=== PATIENT | female | born 1940 | race Caucasian/White ===

== ENCOUNTER 2017-05-22 14:39 | Emergency (ER) | payer MEDICARE, OTHER ==
[2017-05-22 16:09] VITALS: RESP 18
[2017-05-22 17:47] LABS: SQUAMOUS EPITHIAL 4 /hpf (0-5); URINE BACTERIA FEW (<OCC); URINE BILIRUBIN NEGATIVE (NEGATIVE); URINE BLOOD NEGATIVE (NEGATIVE); URINE CLARITY Hazy (Clear); URINE COLOR Yellow (YELLOW); URINE GLUCOSE (UA) NORMAL (Normal); URINE LEUKOCYTE ESTERASE NEG Leu/uL (Negative); URINE NITRATE NEGATIVE (NEGATIVE); URINE PROTEIN 1+ mg/dL (NEGATIVE)
[2017-05-22] MEDS ORDERED: Oxycodone/Acetaminophen 5/325 mg Tab PO STA (18:00)
[2017-05-22] MEDS ORDERED: Lidocaine 5% Patch TD STA (18:00)
--- NOTE | 2017-05-22 18:02 | RAD ---
PROCEDURE: Radiographs of the Lumbar Spine. HISTORY: severe low back pain COMPARISON: No prior. FINDINGS: BONES: . No listhesis. No fracture. DISC SPACES: Scoliosis, secondary degenerative change at multiple levels. OTHER FINDINGS: Calcified nonaneurysmal abdominal aorta. IMPRESSION: No significant or acute findings to account for/ related to the clinical presentation.
[2017-05-22] MEDS ORDERED: Lidocaine 5% Patch TD ONE (18:06)
[2017-05-22] MEDS ORDERED: Oxycodone/Acetaminophen 5/325 mg Tab ONE (18:07)
--- NOTE | 2017-05-22 18:38 | C.PDOC ---
History Of Present Illness Contrary to triage, 76 y/o female presents to the ER complaining of low back pain which has been present for the past 3 to 4 days. Patient states that she went to Dr.Jay Russell. He gave her an unknown injection and a prescription for Naproxen. However, patient did not feel better so she decided to come to the ER. Of note, patient showed a prescription from last year when she had shoulder pain in order to show the nurse the name of her doctor. Time Seen by Provider: 05/22/17 16:45 Chief Complaint (Nursing): Upper Extremity Problem/Injury History Per: Patient History/Exam Limitations: no limitations Onset/Duration Of Symptoms: Days Current Symptoms Are (Timing): Still Present Severity: Moderate Past Medical History Reviewed: Historical Data, Nursing Documentation, Vital Signs Vital Signs: Last Vital Signs Temp 97.7 F 05/22/17 18:40 Pulse 56 L 05/22/17 18:40 Resp 18 05/22/17 18:40 BP 166/70 H 05/22/17 18:40 Pulse Ox 96 05/22/17 21:20 - Medical History PMH: HTN Surgical History: Appendectomy Family History: States: No Known Family Hx - Social History Hx Alcohol Use: No Hx Substance Use: No - Immunization History Hx Tetanus Toxoid Vaccination: No Hx Influenza Vaccination: No Hx Pneumococcal Vaccination: No Review Of Systems Except As Marked, All Systems Reviewed And Found Negative. Musculoskeletal: Positive for: Back Pain (low back pain) Neurological: Negative for: Weakness, Numbness Physical Exam - Physical Exam Appears: Non-toxic, No Acute Distress Skin: Normal Color, Warm Head: Atraumatic, Normacephalic Eye(s): bilateral: Normal Inspection Nose: Normal Oral Mucosa: Moist Neck: Supple Chest: Symmetrical Cardiovascular: Rhythm Regular Respiratory: Normal Breath Sounds, No Accessory Muscle Use, No Rales, No Rhonchi , No Wheezing Back: Other (tenderness to lower back) Extremity: Normal ROM Neurological/Psych: Oriented x3, Normal Speech, Normal Motor, Normal Sensation ED Course And Treatment O2 Sat by Pulse Oximetry: 96 (RA) Pulse Ox Interpretation: Normal Progress Note: Patient given Lidoderm patch and Percocet. Patient feels better and was discharged. Disposition - Disposition Referrals: Della Russell MD [Staff Provider] - Disposition: HOME/ ROUTINE Disposition Time: 18:36 Condition: STABLE Additional Instructions: Follow up with PMD within 1-2 days. Return to ED if feel worse. Prescriptions: Lidocaine 5% [Lidoderm] 1 patch TP DAILY #30 patch oxyCODONE/Acetaminophen [Percocet 5/325 mg Tab] 1 tab PO QID PRN #20 tab PRN Reason: Pain diaZEpam [Valium] 2 mg PO TID #15 tab Instructions: Acute Low Back Pain (ED) Forms: [employer] (South Korean) - Clinical Impression Clinical Impression: Low back pain - PA / [employer] / Resident Statement MD/DO has reviewed & agrees with the documentation as recorded. - Scribe Statement The provider has reviewed the documentation as recorded by the Jorden Telles Provider Attestation All medical record entries made by the Rachelleibkrystina were at my direction and personally dictated by me. I have reviewed the chart and agree that the record accurately reflects my personal performance of the history, physical exam, medical decision making, and the department course for this patient. I have also personally directed, reviewed, and agree with the discharge instructions and disposition.
[2017-05-22 19:03] VITALS: BP 166/70; PULSE 56; TEMP 97.7
[2017-05-22 21:18] VITALS: O2SAT 96
== END 2017-05-22 18:40 | disposition home or self-care (01) ==
LOC: C.ER 14:39
DX: M54.5 Low back pain (principal)

== ENCOUNTER 2017-06-05 15:41 | Emergency (ER) | payer MEDICARE, OTHER ==
[2017-06-05 16:04] VITALS: BP 149/88; PULSE 102; RESP 20; TEMP 97.9; O2SAT 97
[2017-06-05] MEDS ORDERED: Tmp-Smz 800 mg-160 mg DS Tab PO STA (16:38)
[2017-06-05] MEDS ORDERED: Amoxicillin-Clav 875-125 mg Tab PO STA (16:40)
--- NOTE | 2017-06-05 16:45 | C.PDOC ---
History Of Present Illness 76 year old female presents to the ED for evaluation of right ear pain and redness which began 4 days ago. Patient was seen by Dr. Erasto Russell and given Rx for Levaquin. Patient has been taking the medicine without relief and states the pain has been radiating to her face. She denies fever, chills, ear discharge , or trauma. Time Seen by Provider: 06/05/17 16:31 Chief Complaint (Nursing): ENT Problem History Per: Patient History/Exam Limitations: None Onset/Duration Of Symptoms: Days (4) Current Symptoms Are (Timing): Still Present Quality (Ear): Pain W/Touch, Redness. denies: Discharge Past Medical History Reviewed: Historical Data, Nursing Documentation, Vital Signs Vital Signs: Last Vital Signs Temp 97.9 F 06/05/17 15:59 Pulse 102 H 06/05/17 15:59 Resp 20 06/05/17 15:59 BP 149/88 06/05/17 15:59 Pulse Ox 97 06/05/17 16:46 - Medical History PMH: HTN Surgical History: Appendectomy Family History: States: Unknown Family Hx - Social History Hx Alcohol Use: No Hx Substance Use: No - Immunization History Hx Tetanus Toxoid Vaccination: No Hx Influenza Vaccination: No Hx Pneumococcal Vaccination: No Review Of Systems Constitutional: Negative for: Fever, Chills ENT: Positive for: Ear Pain (right). Negative for: Ear Discharge Physical Exam - Physical Exam Appears: Non-toxic, No Acute Distress Skin: Normal Color, Warm, Dry Head: Atraumatic, Normacephalic, No Tenderness (mastoid ) Eye(s): bilateral: Normal Inspection Ear(s): Left: Other (erythema and tenderness to helix. no abscess collection. no sloughing of skin ), Right: Normal Oral Mucosa: Moist Neck: Supple Chest: Symmetrical, No Deformity, No Tenderness Cardiovascular: Rhythm Regular, No Murmur Respiratory: Normal Breath Sounds, No Rales, No Rhonchi, No Wheezing Extremity: Normal ROM, Capillary Refill (less than 2 seconds ) Neurological/Psych: Oriented x3, Normal Speech, Normal Cognition Gait: Steady ED Course And Treatment O2 Sat by Pulse Oximetry: 97 (on RA) Pulse Ox Interpretation: Normal Medical Decision Making Medical Decision Making: Assessment: cellulitis of ear Progress: Augmentin PO, Bactrim PO, and Motrin PO administered. Will discharge patient on Levaquin and prescribe Augmentin and Bactrim. Advised patient to f/u with Dr. Byers for further evaluation. Disposition Counseled Patient/Family Regarding: Studies Performed, Diagnosis, Need For Followup, Rx Given - Disposition Referrals: Rafat Byers MD [Staff Provider] - [facility] [Outside] Disposition: HOME/ ROUTINE Disposition Time: 16:42 Condition: STABLE Additional Instructions: follow up with Dr. Byers in 2 days. stop levofloxacin call to make an appointment take medications as prescribed return to ER if symptoms worsens or progress Prescriptions: Acetaminophen/Codeine [Tylenol/Codeine 300 MG/30 MG] 1 tab PO Q6H PRN #12 tab PRN Reason: Pain, Severe (8-10) Amoxicillin/Clavulanate [Augmentin 875 MG-125 MG] 1 tab PO BID #20 tab Naproxen [Naprosyn] 500 mg PO BID PRN #16 tab PRN Reason: Pain, Moderate (4-7) Sulfamethoxazole/Trimethoprim [Bactrim DS 800 mg-160 mg] 1 tab PO BID #14 tab Instructions: Cellulitis (Skin Infection), Adult (DC) Forms: [employer] (Citizen Of [place]), Gen Discharge Inst Citizen Of [place] Print Language: JAPANESE - Clinical Impression Clinical Impression: Cellulitis - Scribe Statement The provider has reviewed the documentation as recorded by the Scribe (Marci Russell) Provider Attestation: All medical record entries made by the Scribe were at my direction and personally dictated by me. I have reviewed the chart and agree that the record accurately reflects my personal performance of the history, physical exam, medical decision making, and the department course for this patient. I have also personally directed, reviewed, and agree with the discharge instructions and disposition.
[2017-06-05] MEDS ORDERED: Tmp-Smz 800 mg-160 mg DS Tab ONE (17:03)
[2017-06-05] MEDS ORDERED: Amoxicillin-Clav 875-125 mg Tab PO ONE (17:03)
== END 2017-06-05 17:10 | disposition home or self-care (01) ==
LOC: C.ER 15:41
DX: H60.12 Cellulitis of left external ear (principal)

== ENCOUNTER 2017-06-06 19:53 | Emergency (ER) | payer MEDICARE, OTHER ==
[2017-06-06] MEDS ORDERED: Sodium Chloride 0.9% 500 ML IV ONE ×2 (21:00→21:31)
[2017-06-06 21:20] LABS: BASO # 0.1 K/uL (0.0-0.2); BASO % 0.6 % (0.0-2.0); EOS % 0.3 % (0.0-4.0); LYMPH # 2.9 K/uL (1.0-4.3); LYMPH % 22.7 % (20.0-40.0); MEAN CORPUSCULAR HEMOGLOBIN 28.2 pg (27.0-31.0); MEAN CORPUSCULAR HGB CONC 33.2 g/dL (33.0-37.0); MEAN PLATELET VOLUME 7.6 fL (7.2-11.7); MONO # 0.6 K/uL (0.0-0.8); NEUT # 9.1 K/uL (1.8-7.0); NEUT % 71.4 % (50.0-75.0); NRBC % 0.1 % (0.0-2.0); RBC 4.96 Mil/uL (3.80-5.20); RED CELL DISTRIBUTION WIDTH 14.4 % (11.5-14.5); WHITE BLOOD COUNT 12.7 K/uL (4.8-10.8)
[2017-06-06] MEDS ORDERED: Sodium Chloride 0.9% 0 ML ONE (21:21)
[2017-06-06 21:43] LABS: ALB/GLOB RATIO 1.1 (1.0-2.1); CALCIUM 10.2 mg/dl (8.6-10.4)
--- NOTE | 2017-06-06 22:35 | CT ---
EXAM: CT Head Without Intravenous Contrast CLINICAL HISTORY: 76 years old, female; Signs and symptoms; Dizziness; Additional info: Dizziness, rt auricular cellulitis, post ear pain TECHNIQUE: Axial computed tomography images of the head/brain without intravenous contrast. All CT scans at this facility use one or more dose reduction techniques, viz.: automated exposure control; ma/kV adjustment per patient size (including targeted exams where dose is matched to indication; i.e. head); or iterative reconstruction technique. COMPARISON: No relevant prior studies available. FINDINGS: Brain: There is mild diffuse cerebral atrophy present, consistent with this patient's age. There is mild diffuse heterogeneity of the white matter attenuation, consistent with chronic white matter ischemic changes. No hemorrhage. Ventricles: The ventricular system demonstrates mild diffuse compensatory enlargement. Bones/joints: Unremarkable. No acute fracture. Soft tissues: There is no soft tissue collection or mass posterior to the ear. Sinuses: Unremarkable as visualized. No acute sinusitis. Mastoid air cells: Unremarkable as visualized. No mastoid effusion. IMPRESSION: No acute intracranial findings.
--- NOTE | 2017-06-06 23:28 | C.PDOC ---
History Of Present Illness 76 year old female presents to the ER with daughters for a complaint of vomiting and decreased appetite. As per daughters, patient was treated for an ear infection 2 weeks ago during which time she completed a course of Levaquin, however, the symptoms persisted with no improvement of infection. Patient was seen at [facility] and this hospital yesterday and offered new antibiotics; she now return due to dizziness and headache that began today. Patient states she feels better compared to how she felt initially, however, she is still having pain to the right ear and sore throat. Denies chest pain, SOB, or fever. Time Seen by Provider: 06/06/17 20:23 Chief Complaint (Nursing): GI Problem History Per: Patient History/Exam Limitations: no limitations Onset/Duration Of Symptoms: Days Current Symptoms Are (Timing): Still Present Recent travel outside of the [place]: No Past Medical History Reviewed: Historical Data, Nursing Documentation, Vital Signs Vital Signs: Last Vital Signs Temp 98 F 06/06/17 23:37 Pulse 88 06/06/17 23:37 Resp 18 06/06/17 23:37 BP 140/70 06/06/17 23:37 Pulse Ox 98 06/07/17 01:08 - Medical History PMH: HTN Surgical History: Appendectomy Family History: States: Unknown Family Hx - Social History Hx Alcohol Use: No Hx Substance Use: No - Immunization History Hx Tetanus Toxoid Vaccination: No Hx Influenza Vaccination: No Hx Pneumococcal Vaccination: No Review Of Systems Constitutional: Positive for: Other (Decreased appetite). Negative for: Fever, Chills ENT: Positive for: Ear Pain, Throat Pain Cardiovascular: Negative for: Chest Pain Respiratory: Negative for: Shortness of Breath Gastrointestinal: Positive for: Nausea Neurological: Positive for: Headache, Dizziness Physical Exam - Physical Exam Appears: Non-toxic, No Acute Distress Skin: Normal Color, Warm, Dry Head: Atraumatic, Normacephalic Eye(s): bilateral: Normal Inspection (No nystagmus) Ear(s): Left: Other (Erythema and swelling to left auricular area with scabby lesion to auricle. TM and canal normal, no mastoid tenderness.), Right: Normal Nose: Normal Oral Mucosa: Moist Throat: Normal, No Erythema, No Exudate Neck: Normal, Supple Chest: Symmetrical, No Tenderness Cardiovascular: Rhythm Regular Respiratory: Normal Breath Sounds, No Rales, No Rhonchi, No Wheezing Gastrointestinal/Abdominal: Soft, No Tenderness Neurological/Psych: Oriented x3, Normal Speech, Other (No reproducible tenderness) ED Course And Treatment - Laboratory Results Result Diagrams: 06/06/17 21:16 06/06/17 21:16 ECG: Interpreted By Me, Viewed By Me ECG Rhythm: Sinus Rhythm Interpretation Of ECG: No acute ST/T changes. Rate From EC O2 Sat by Pulse Oximetry: 98 (Room air) Pulse Ox Interpretation: Normal - CT Scan/US CT Head Other Rad Studies (CT/US): Read By Radiologist, Radiology Report Reviewed CT/US Interpretation: EXAM: CT Head Without Intravenous Contrast. CLINICAL HISTORY: 76 years old, female; Signs and symptoms; Dizziness; Additional info: Dizziness, rt auricular cellulitis,. post ear pain. TECHNIQUE: Axial computed tomography images of the head/brain without intravenous contrast. All CT scans at. this facility use one or more dose reduction techniques, viz.: automated exposure control; ma/kV. adjustment per patient size (including targeted exams where dose is matched to indication; i.e. head);. or iterative reconstruction technique. COMPARISON: No relevant prior studies available. FINDINGS: Brain: There is mild diffuse cerebral atrophy present, consistent with this patient's age. There is mild. diffuse heterogeneity of the white matter attenuation, consistent with chronic white matter ischemic. changes. No hemorrhage. Ventricles: The ventricular system demonstrates mild diffuse compensatory enlargement. Bones/joints: Unremarkable. No acute fracture. Soft tissues: There is no soft tissue collection or mass posterior to the ear. Sinuses: Unremarkable as visualized. No acute sinusitis. Mastoid air cells: Unremarkable as visualized. No mastoid effusion. IMPRESSION: No acute intracranial findings. Progress Note: CT head, EKG, and blood work ordered, results were negative. Zofran and IV fluids administered. On reevaluation, patient is resting comfortably in the ER in no acute distress, tolerating PO, vitals are stable. Discussed results with daughters and patient with patient's permission, advised patient to keep appointment with ENT and PMD as scheduled. Patient understands and agrees with plan, Return precautions gven at length Disposition Counseled Patient/Family Regarding: Diagnosis, Need For Followup, Rx Given - Disposition Disposition: HOME/ ROUTINE Disposition Time: 23:25 Condition: STABLE Additional Instructions: Increase PO fluids Continue PO antibiotics as directed Keep appointment with ENT Follow up with PMD Return to ER if worse Prescriptions: Ondansetron [Zofran Odt] 4 mg PO TID #10 odt Instructions: Vertigo (a Type of Dizziness) (DC) Forms: [employer] (Swazi) Print Language: MAURITANIAN - Clinical Impression Clinical Impression: Vertigo, Cellulitis, Cellulitis of earlobe - PA / [employer] / Resident Statement MD/DO has reviewed & agrees with the documentation as recorded. - Scribe Statement The provider has reviewed the documentation as recorded by the Scribkrystina Pond All medical record entries made by the Jorden were at my direction and personally dictated by me. I have reviewed the chart and agree that the record accurately reflects my personal performance of the history, physical exam, medical decision making, and the department course for this patient. I have also personally directed, reviewed, and agree with the discharge instructions and disposition.
[2017-06-06 23:37] VITALS: BP 140/70; PULSE 88; RESP 18; TEMP 98
[2017-06-07 00:58] VITALS: O2SAT 98
--- NOTE | 2017-06-08 00:22 | CARD ---
APPROVED REPORT EKG Measurement Heart [id number] QTc0 <Conclusion> No QRS complexes found, no ECG analysis possible
--- NOTE | 2017-06-08 00:22 | CARD ---
APPROVED REPORT EKG Measurement Heart [id number] <Conclusion> Normal sinus rhythm Cannot rule out Anterior infarct, age undetermined Abnormal ECG
== END 2017-06-06 23:40 | disposition home or self-care (01) ==
LOC: C.ER 19:53
DX: R42 Dizziness and giddiness (principal); H60.12 Cellulitis of left external ear; I10 Essential (primary) hypertension
CPT/HCPCS: 70450; 80053; 85025; 96361; 96374; 99284; J2405; J7040